=== PATIENT | female | born 1985 | race Caucasian/White ===

== ENCOUNTER 2020-02-21 19:53 | Emergency (ER) | payer SELFPAY ==
[~2020-02-21] VITALS: Ht 170.2 cm; Wt 64.8 kg
[2020-02-21 19:53] VITALS: BP 132/92
--- NOTE | 2020-02-21 20:25 | PHYS DOC ---
Past History Past Medical History: Anemia, Liver Disease Past Medical History alcoholism Past Surgical History: No Surgical History Smoking: Non-smoker, Quit Less Than 1 Year Alcohol Use: Sober (Stopped alcohol use several weeks ago) Drug Use: None General Adult EDM: Chief Complaint: ANXIETY/PANIC ATTACK HPI: HPI: Patient is a 34 year old female who presents for evaluation of insomnia and persistent skin itching. 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 She has a chronically elevated bilirubin level and is clearly jaundiced. Patient was just discharged from [facility]. She is concerned because the itching makes it difficult to sleep. Patient received a blood transfusion about 1 week ago. Patient denies any recent alcohol use for more than several weeks. Patient does take daily steroids, diuretics and thiamine. Patient has some generalized malaise but is ambulatory. Patient currently lives with a friend and a family. She states that she is very anxious and does not want to be alone. Patient states she has been taking Vistaril and Benadryl with minimal improvement of symptoms Review of Systems: Review of Systems: Constitutional: Denies fever or chills Eyes: Denies change in visual acuity HENT: Denies nasal congestion or sore throat Respiratory: Denies cough or shortness of breath Cardiovascular: Denies chest pain or edema GI: Denies abdominal pain, nausea, vomiting, bloody stools or diarrhea : Denies dysuria Musculoskeletal: Denies back pain or joint pain Integument: Jaundiced skin, diffuse pruritus Neurologic: Denies headache, focal weakness or sensory changes Endocrine: Denies polyuria or polydipsia Lymphatic: Denies swollen glands Psychiatric: Denies depression, has anxiety Heart Score: HEART Score for Chest Pain: HEART Score for Chest Pain Response (Comments) Value History Slighlty/Non-Suspicious 0 ECG Normal 0 Age < 45 0 Risk Factors No Risk Factors 0 Troponin < Normal Limit 0 Total 0 Risk Factors: Risk Factors: DM, Current or recent (<one month) smoker, HTN, HLP, family history of CAD, obesity. Risk Scores: Score 0 - 3: 2.5% MACE over next 6 weeks - Discharge Home Score 4 - 6: 20.3% MACE over next 6 weeks - Admit for Clinical Observation Score 7 - 10: 72.7% MACE over next 6 weeks - Early Invasive Strategies Physical Exam: PE: Constitutional: Well developed, well nourished, mild acute distress, non-toxic appearance. [] HENT: Normocephalic, atraumatic, bilateral external ears normal, oropharynx moist, no oral exudates, nose normal. [] Eyes: PERRL, EOMI, scleral icterus, no discharge. [] Neck: Normal range of motion, no tenderness, supple, no stridor. [] Cardiovascular:Heart rate regular rhythm, no murmur [] Lungs & Thorax: Bilateral breath sounds clear to auscultation [] Abdomen: Bowel sounds normal, soft, no tenderness, no masses, no pulsatile masses. [] Skin: Warm, dry, no erythema, diffuse jaundice and scleral icterus. [] Back: No tenderness, no CVA tenderness. [] Extremities: No tenderness, no cyanosis, no clubbing, ROM intact, no edema. [] Neurologic: Alert and oriented X 3, normal motor function, normal sensory function, no focal deficits noted. [] Psychologic: Affect normal, judgement normal, anxious mood. [] Current Patient Data: Labs: Laboratory Tests Test 02/21/20 20:18 White Blood Count 10.1 x10^3/uL Red Blood Count 2.51 x10^6/uL Hemoglobin 9.6 g/dL Hematocrit 27.8 % Mean Corpuscular Volume 111 fL Mean Corpuscular Hemoglobin 38 pg Mean Corpuscular Hemoglobin Concent 35 g/dL Red Cell Distribution Width 25.5 % Platelet Count 400 x10^3/uL Segmented Neutrophils % 59 % Band Neutrophils % 4 % Lymphocytes % 16 % Monocytes % 18 % Metamyelocytes % 2 % Myelocytes % 1 % Toxic Vacuolation Present Platelet Estimate Increased Large Platelets Few Giant Platelets Occ Polychromasia Mod Poikilocytosis Slight Basophilic Stippling Present Anisocytosis Mod Macrocytosis Mod Pappenheimer Bodies Present Target Cells Present Sodium Level 130 mmol/L Potassium Level 2.9 mmol/L Chloride Level 92 mmol/L Carbon Dioxide Level 27 mmol/L Anion Gap 11 Blood Urea Nitrogen 11 mg/dL Creatinine 1.2 mg/dL Estimated GFR (Cockcroft-Gault) 50.8 BUN/Creatinine Ratio 9 Glucose Level 104 mg/dL Calcium Level 9.2 mg/dL Total Bilirubin 19.3 mg/dL Aspartate Amino Transf (AST/SGOT) Pending Alanine Aminotransferase (ALT/SGPT) Pending Alkaline Phosphatase 639 U/L Ammonia 24 mcmol/L Total Protein 6.0 g/dL Albumin 2.4 g/dL Albumin/Globulin Ratio 0.7 Lipase 766 U/L Current Medications Medications (Trade) Dose Ordered Sig/Giovanny Route PRN Reason Start Time Stop Time Status Last Admin Dose Admin Lorazepam (Ativan) 1 mg 1X ONCE PO 02/21/20 20:30 02/21/20 20:33 DC 02/21/20 20:35 Potassium Chloride (Klor-Con) 40 meq 1X ONCE PO 02/21/20 21:15 02/21/20 21:35 DC 02/21/20 21:13 EKG: EKG: [] Radiology/Procedures: Radiology/Procedures: [] Course & Med Decision Making: Course & Med Decision Making Pertinent Labs and Imaging studies reviewed. (See chart for details) 2126 stable, patient has been reassessed multiple times. Her main complaint right now is itching and anxiety. Though symptoms are somewhat improving at this time after Ativan dose. Abdomen is soft and nontender. There is no significant distention present. Awaiting rest of blood work results. Due to her elevated bilirubin levels they have to dilute continue rest results. Patient's low potassium level was already dressed with oral potassium replacement. Patient is already on steroids, Vistaril and Benadryl for itching Dragon Disclaimer: Dragon Disclaimer: This electronic medical record was generated, in whole or in part, using a voice recognition dictation system. Departure Departure: Impression: Primary Impression: Jaundice Additional Impressions: Itching Liver disease due to alcohol Hypokalemia Insomnia Qualified Codes: G47.00 - Insomnia, unspecified Anemia Disposition: HOME/RESIDENCE PRIOR TO ADM Condition: STABLE Referrals: PCP,NO (PCP) CEDRIC RICHARDS MD Patient Instructions: Alcoholic Liver Disease, [id number], Hypokalemia-Brief, Insomnia-Brief, Itching-Brief, Jaundice Additional Instructions: Drink plenty fluids, rest, you have abnormal liver enzymes but have a known history of chronic liver disease. Call and see your liver specialist right away and follow-up. Your ammonia level is stable. Scripts Potassium Chloride (POTASSIUM CHLORIDE ) 20 Meq Tablet.er 20 MEQ PO DAILY for SUPPLEMENT for 7 Days, #7 TAB Prov: WAN INGRAM DO 02/21/20 Lorazepam (ATIVAN) 1 Mg Tablet 1 TAB PO BID for anxiety MDD 2 Tablet(s) for 10 Days, #12 TAB 0 Refills Prov: WAN INGRAM DO 02/21/20 Justification of Admission: Justification of Admission: Justification of Admission Dx: N/A WAN INGRAM DO Feb 21, 2020 20:24
[2020-02-21] MEDS ORDERED: LORazepam 1 MG TABLET PO ONE (20:30)
[2020-02-21 20:38] LABS: HEMATOCRIT 27.8 % (36.0-47.0); HEMOGLOBIN 9.6 g/dL (12.0-15.5); MEAN CORPUSCULAR HEMOGLOBIN 38 pg (25-35); MEAN CORPUSCULAR HGB CONC 35 g/dL (31-37); MEAN CORPUSCULAR VOLUME 111 fL (79-100); PLATELET COUNT 400 x10^3/uL (140-400); RED BLOOD COUNT 2.51 x10^6/uL (3.50-5.40); RED CELL DISTRIBUTION WIDTH 25.5 % (11.5-14.5); WHITE BLOOD COUNT 10.1 x10^3/uL (4.0-11.0)
[2020-02-21 21:05] LABS: ALBUMIN 2.4 g/dL (3.4-5.0)
[2020-02-21 21:06] LABS: CALCIUM 9.2 mg/dL (8.5-10.1); TOTAL BILIRUBIN 19.3 mg/dL (0.2-1.0)
[2020-02-21 21:08] LABS: POTASSIUM 2.9 mmol/L (3.5-5.1)
[2020-02-21] MEDS ORDERED: POTASSIUM CHLORIDE 20 MEQ TABLET.ER. PO ONE (21:15)
[2020-02-21 21:26] LABS: % BANDS 4 % (0-9); % LYMPHS 16 % (24-48); % METAS 2 % (0-0); % MONOS 18 % (0-10); % MYELOS 1 % (0-0); % SEGS 59 % (35-66); PLT ESTIMATE INCREASED (ADEQUATE); POLYCHROMASIA MOD
[2020-02-21 21:27] LABS: ANISOCYTOSIS MOD; PAPPENHEIMER BODIES PRESENT; POIKILOCYTOSIS SLIGHT
[2020-02-21 21:29] LABS: TARGET CELLS PRESENT; TOXIC VACUOLATION PRESENT
[2020-02-21 21:33] LABS: ALBUMIN/GLOBULIN RATIO 0.7 (1.0-1.7)
[2020-02-21 21:34] LABS: CREATININE 1.2 mg/dL (0.6-1.0); GFR 50.8
[2020-02-21] MEDS ORDERED: LORA-254 PO (21:44)
[2020-02-21] MEDS ORDERED: POTA20TA4 PO (21:44)
== END 2020-02-21 21:55 | disposition home or self-care (01) ==
LOC: ER 19:53
DX: G47.00 Insomnia, unspecified (principal); R17 Unspecified jaundice; K70.9 Alcoholic liver disease, unspecified; E87.6 Hypokalemia; D64.9 Anemia, unspecified; L29.9 Pruritus, unspecified; Z86.2 Personal history of diseases of the blood and blood-forming organs and certain disorders involving the immune mechanism; Z87.891 Personal history of nicotine dependence
CPT/HCPCS: 36415; 80053; 82140; 83690; 85007; 85025; 99283

== ENCOUNTER 2020-02-28 01:41 | Emergency (ER) | payer SELFPAY ==
[~2020-02-28] VITALS: Ht 170.2 cm; Wt 64.8 kg
[~2020-02-28 01:41] MED LIST: LORA-254 PO; POTA20TA4 PO
--- NOTE | 2020-02-28 01:44 | PHYS DOC ---
Past History Past Medical History: Anemia, Anxiety, Liver Disease, Other Additional Past Medical Histor: psoriasis, PTSD, ETOH abuse Past Medical History hypokalemia Additional Past Surgical Histo: breast implants, D&N Smoking: Non-smoker, Quit Less Than 1 Year Alcohol Use: Sober Drug Use: None General Adult HPI: HPI: ".. I think I got liver failure.. it never really got bad..until I moved out here from [facility].... I was told a couple years ago that drinking heavily...could cause me to get liver failure.. . But I did not get really yellow until about February 12.... I have been to [facility].... I got a transfusion there..... I have been [facility]... I was here on 02/20.. My main problem at night is the severe itching... I cannot sleep... I do have appointment with Brayan Rivera NP for evaluation.. or referral for maybe getting on list for liver transplant and or consult with GI somewhere..Everyone tell s me I need to go to [facility].. ... It just the itching.. it driving me crazy... I am on run of steriods... 5 mg a day.. and I ve been taking Vistaril... That usually used to work...".." I just feel like crap..." " I fell the other day.. on my right side.. and I ve been hurting ever since..." Patient is a 34 year old female who presents with above hx and complaints itching, possible liver failure second to alcohol abuse, and insomnia. Patient has history of chronically elevated bilirubin and anemia. Reportedly had a transfusion approximately 14 days ago because of anemia. Patient advises she has not used alcohol since her [birth year]. Patient denies other illicit drug use. Denies tylenol use. Has use some Ibuprofen for discomfort and itching. Patient states she just recently stopped smoking. She does have a past history of anxiety, PTSD, depression and panic attacks. Patient currently on a course of prednisone 5 mg a day, diuretics, thiamine, folate,. Patient also taking Vistaril, and Benadry as needed for itching. Pt. denies any herbal med. usage. Has used CBD on occasion but not daily. Review of Systems: Review of Systems: Constitutional: Denies fever or chills Eyes: Denies change in visual acuity HENT: Denies nasal congestion or sore throat Respiratory: Denies cough or shortness of breath Cardiovascular: Denies chest pain or edema GI: Denies abdominal pain, nausea, vomiting, bloody stools or diarrhea : Denies dysuria Musculoskeletal: Denies back pain or joint pain Integument: Denies rash Neurologic: Denies headache, focal weakness or sensory changes Endocrine: Denies polyuria or polydipsia Lymphatic: Denies swollen glands Psychiatric: Denies depression or anxiety Heart Score: Risk Factors: Risk Factors: DM, Current or recent (<one month) smoker, HTN, HLP, family history of CAD, obesity. Risk Scores: Score 0 - 3: 2.5% MACE over next 6 weeks - Discharge Home Score 4 - 6: 20.3% MACE over next 6 weeks - Admit for Clinical Observation Score 7 - 10: 72.7% MACE over next 6 weeks - Early Invasive Strategies Family History: Family History: Noncontributory to presentation Current Medications: Current Meds: See nursing for home medications. Allergies: Allergies: Allergies Coded Allergies Type Severity Reaction Last Updated Verified No Known Allergies Allergy Unknown 02/21/20 Yes Physical Exam: PE: Constitutional: In acute emotional distress, non-toxic appearance. Obviously jaundice and agitated from the itching. HENT: Normocephalic, atraumatic, bilateral external ears normal, oropharynx moist, no oral exudates, nose normal. [] Eyes: PERRLA, EOMI, conjunctiva pale, jaundice, no discharge. [] Neck: Normal range of motion, no tenderness, supple, no stridor. [] Cardiovascular:Heart rate regular rhythm, no murmur [] Lungs & Thorax: Bilateral breath sounds equal apex with scattered wheezes on auscultation []Breast implant scars., Rt. lower chest wall tenderness. Ecchymosis Abdomen: Bowel sounds normal, soft, moderate right upper quadrant tenderness, no masses, no pulsatile masses. [] Skin: Warm, dry, no erythema, no rash. Tattoos. Very jaundice. Resolving hematoma right lower leg. Poor turgor. Multiple areas of contusions, ecchymosis, and areas of petechiae. Loss of lst toe toenails. Back: No tenderness, no CVA tenderness. [] Extremities: Right lower leg tenderness, no cyanosis, no clubbing, ROM intact, right lower leg edema. [Wide gait. Using cane. Neurologic: Alert and oriented X 3, Moves ext on request,, has distal sensory function, no focal deficits noted. [] Patient ambulatory guarded gait due to right leg injury. ( Pt states the hematoma much better than last week). Does have some findings of plantar neuropathy slight decrease Vib.[id number]. Psychologic: Affect anxious,, judgement normal, mood depressed. EKG: EKG: My interpretation EKG shows a sinus rhythm at 68 bpm. Low voltage throughout. Does have mild leftward axis. No findings of acute STEMI with contralateral changes. T waves are flat .[] Radiology/Procedures: Radiology/Procedures: [address] [address] IMAGING REPORT Signed PATIENT: JORGE A SHIN ACCOUNT: [id number] : 1985 LOCATION: ER AGE: 34 SEX: F EXAM STATUS: DEP ER ORD. PHYSICIAN: NUNO THOMAS MD REASON: fall, pain Rt. upper & lower chest, [id number], 90ml & [id number], 30ml PROCEDURE: CT ANGIO CHEST ABD PELVIS EXAM: CTA OF THE CHEST, ABDOMEN AND PELVIS WITH CONTRAST. HISTORY: Fall, chest and abdominal pain. TECHNIQUE: Computed tomography of the chest, abdomen and pelvis was performed after the intravenous administration of iodinated contrast. One or more of the following individualized dose reduction techniques were utilized for this examination: 1. Automated exposure control. 2. Adjustment of the mA and/or kV according to patient size. 3. Use of iterative reconstruction technique. COMPARISON: None. FINDINGS: Bone windows reveal no suspicious lesions. There is no evidence of aortic injury or aneurysm. There is no arch vessel injury or stenosis. The main pulmonary artery is not ideally opacified, but there is no evidence of pulmonary embolism. The celiac axis, superior mesenteric artery and inferior mesenteric artery are patent. The renal arteries are patent bilaterally. The iliac systems are patent without stenosis bilaterally. There are no pathologically enlarged mediastinal or axillary lymph nodes. There is no pleural or pericardial effusion. The heart is not enlarged. Bilateral breast implants are noted. Lung windows reveal no infiltrates. There is mild dependent atelectasis. Hypoattenuation of the hepatic parenchyma at is consistent with severe diffuse hepatic steatosis. The gallbladder is decompressed but demonstrates some wall thickening. The spleen, adrenal glands, kidneys and pancreas are unremarkable. There are no pathologically enlarged lymph nodes. The appendix is not inflamed. There is no small bowel obstruction. IMPRESSION: 1. No evidence of visceral injury within the chest, abdomen or pelvis. 2. Severe diffuse hepatic steatosis. 3. Gallbladder wall thickening most likely reflects liver disease rather than acute cholecystitis. The gallbladder is decompressed. Electronically signed by: Tracy Loya MD (02/28/2020 6:10 AM) [facility] DICTATED AND SIGNED BY: TEJA LOYA MD DATE: 02/28/20609 CC: NUNO THOMAS MD; PCP,NO ~ [][address] [address] IMAGING REPORT Signed PATIENT: JORGE A SHIN ACCOUNT: [id number] : 1985 LOCATION: ER AGE: 34 SEX: F EXAM STATUS: REG ER ORD. PHYSICIAN: NUNO THOMAS MD REASON: pain, hx fall PROCEDURE: TIBIA FIBULA RIGHT EXAM: RIGHT TIBIA/FIBULA 2 VIEWS. HISTORY: Fall, pain. COMPARISON: None. FINDINGS: There is focal soft tissue swelling along the lateral aspect of the right kramer. No fractures are identified. The joint spaces and alignment of the knee and ankle are grossly maintained. IMPRESSION: 1. Focal kramer swelling. No fracture. Electronically signed by: Tracy Loya MD (02/28/2020 5:10 AM) [facility] DICTATED AND SIGNED BY: TEJA LOYA MD DATE: 02/28/2080 CC: NUNO THOMAS MD; PCP,NO ~ [address] [address] IMAGING REPORT Signed PATIENT: JORGE A SHIN ACCOUNT: [id number] : 1985 LOCATION: ER AGE: 34 SEX: F EXAM STATUS: REG ER ORD. PHYSICIAN: NUNO THOMAS MD REASON: pain, hx fall PROCEDURE: CHEST PA & LATERAL EXAM: 1. CHEST 2 VIEWS. 2. ABDOMEN 2 VIEWS. HISTORY: Chest and abdominal pain, fall. COMPARISON: None. FINDINGS: There are no confluent infiltrates. There is no pneumothorax or pleural effusion. The heart is not enlarged. Bilateral breast implants are noted. There is no pneumoperitoneum. There are no distended small bowel loops or significant air-fluid levels. Stool throughout the colon is consistent with constipation. IMPRESSION: 1. No confluent infiltrates. 2. No evidence of obstruction. Correlate for constipation. Electronically signed by: Tracy Loya MD (02/28/2020 5:09 AM) [facility] DICTATED AND SIGNED BY: TEJA LOYA MD DATE: 02/28/20 0509 CC: NUNO THOMAS MD; PCP,NO ~ Course & Med Decision Making: Course & Med Decision Making Pertinent Labs and Imaging studies reviewed. (See chart for details) Discussed presentation, testing and tx. plan with Impression: 1. Hepatic Failure/ Insuf. 2. Leukocytosis 15.2 3. Anemia Hgb 8.7, Macrocytic 116 116/ Hypochromic 38 MCH 4. Elevated LFT/s AST 166, ALT 191, Alk Phos. 397, Tbil 9.0, D 8.1 5. Elevated Lipase 641 [] Dragon Disclaimer: Dragon Disclaimer: This electronic medical record was generated, in whole or in part, using a voice recognition dictation system. Departure Departure: Disposition: HOME/RESIDENCE PRIOR TO ADM Condition: STABLE Referrals: PCP,NO (PCP) Justification of Admission: Justification of Admission: Justification of Admission Dx: N/A Dragon Disclaimer This chart was dictated in whole or in part using Voice Recognition software in a busy, high-work load, and often noisy Emergency Department environment. It may contain unintended and wholly unrecognized errors or omissions. NUNO THOMAS MD Feb 28, 2020 01:44
[2020-02-28] MEDS ORDERED: IV RINGERS SOLUTION,LACTATED 1,000 ML IV SCH (02:00)
--- NOTE | 2020-02-28 02:12 | EKG ---
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
[2020-02-28] MEDS ORDERED: ONDANSETRON PF 4 MG/2 ML VIAL. IVP ONE (02:30)
[2020-02-28] MEDS ORDERED: FAMOTIDINE 20 MG/2 ML VIAL IVP ONE (02:30)
[2020-02-28] MEDS ORDERED: LORazepam 1 MG TABLET PO ONE ×2 (02:30→05:45)
[2020-02-28 02:31] LABS: BASO % 0 % (0-3); EOS # 0.1 x10^3/uL (0.0-0.7); EOS % 1 % (0-3); HEMATOCRIT 26.3 % (36.0-47.0); HEMOGLOBIN 8.7 g/dL (12.0-15.5); LYMPH # 0.5 x10^3/uL (1.0-4.8); LYMPH % 3 % (24-48); MEAN CORPUSCULAR HEMOGLOBIN 38 pg (25-35); MEAN CORPUSCULAR HGB CONC 33 g/dL (31-37); MEAN CORPUSCULAR VOLUME 116 fL (79-100); MONO # 3.5 x10^3/uL (0.0-1.1); MONO % 23 % (0-9); NEUT # 11.1 x10^3uL (1.8-7.7); NEUT % 73 % (31-73); PLATELET COUNT 345 x10^3/uL (140-400); RED BLOOD COUNT 2.27 x10^6/uL (3.50-5.40); WHITE BLOOD COUNT 15.2 x10^3/uL (4.0-11.0)
[2020-02-28 03:00] LABS: BILIRUBIN,URINE SMALL (NEG); CLARITY,URINE CLEAR; COLOR,URINE YELLOW; GLUCOSE,URINE NEG (NEG)
[2020-02-28 03:01] LABS: BACTERIA,URINE 0 /HPF (0-FEW); NITRITE,URINE NEG (NEG); RBC,URINE 0 /HPF (0-2); SQUAMOUS EPITHELIAL CELL,UR OCC /LPF; WBC,URINE OCC /HPF (0-4)
[2020-02-28 03:03] LABS: BARBITURATES NEG (NEG); BENZODIAZEPINES POS (NEG); CANNABINOIDS NEG (NEG); COCAINE NEG (NEG); METHADONE NEG (NEG); OPIATES NEG (NEG); PHENCYCLIDINE NEG (NEG)
[2020-02-28 03:04] LABS: ANION GAP 11 (6-14); BLOOD UREA NITROGEN 21 mg/dL (7-20); CARBON DIOXIDE 27 mmol/L (21-32); CHLORIDE 94 mmol/L (98-107); CREATININE 0.9 mg/dL (0.6-1.0); GFR 70.8; GLUCOSE 158 mg/dL (70-99); POTASSIUM 4.5 mmol/L (3.5-5.1); SODIUM 132 mmol/L (136-145)
[2020-02-28 03:08] LABS: % BANDS 7 % (0-9); % LYMPHS 11 % (24-48); % MONOS 1 % (0-10); % SEGS 81 % (35-66); PLT ESTIMATE ADEQUATE (ADEQUATE)
[2020-02-28 03:09] LABS: ALK PHOS 397 U/L (46-116); ALT (SGPT) 191 U/L (14-59); ANISOCYTOSIS SLIGHT; AST (SGOT) 166 U/L (15-37); DIRECT BILIRUBIN 8.1 mg/dL (0.0-0.2); LIPASE 641 U/L (73-393); TOTAL PROTEIN 6.8 g/dL (6.4-8.2)
[2020-02-28 03:15] LABS: AMPHETAMINE/METHAMPHETAMINE NEG (NEG)
[2020-02-28] MEDS ORDERED: methylPREDNISolone SOD SUCC PF 125 MG/2 ML VIAL. IV ONE (03:15)
[2020-02-28] MEDS ORDERED: AMPICILLIN/SULBACTAM 1.5 GM in IV NORMAL SALINE 50ML 50 ML IV ONE (03:15)
[2020-02-28 03:19] LABS: C REACTIVE PROTEIN < 0.5 mg/L (0-3.3)
[2020-02-28] MEDS ORDERED: AMPICILLIN/SULBACTAM 1.5 GM VIAL. IV ONE (03:19)
[2020-02-28] MEDS ORDERED: IV NORMAL SALINE 50ML 50 ML ONE (03:19)
[2020-02-28 03:20] LABS: ACETAMIN < 2.0 mcg/mL (10-30); SALIC < 2.8 mg/dL (2.8-20.0)
[2020-02-28] MEDS ORDERED: IOHEXOL 240 MG/ML 50ML VIAL. PO ONE (03:45)
[2020-02-28] MEDS ORDERED: CONTRAST GIVEN MC PRN (03:45)
[2020-02-28] MEDS ORDERED: IOHEXOL 350 MG/ML 100 ML VIAL. IV ONE (03:45)
--- NOTE | 2020-02-28 05:12 | RAD ---
EXAM: RIGHT TIBIA/FIBULA 2 VIEWS. HISTORY: Fall, pain. COMPARISON: None. FINDINGS: There is focal soft tissue swelling along the lateral aspect of the right kramer. No fractures are identified. The joint spaces and alignment of the knee and ankle are grossly maintained. IMPRESSION: 1. Focal kramer swelling. No fracture. Electronically signed by: Tracy Loya MD (02/28/2020 5:10 AM) [facility]
--- NOTE | 2020-02-28 05:12 | RAD ---
EXAM: 1. CHEST 2 VIEWS. 2. ABDOMEN 2 VIEWS. HISTORY: Chest and abdominal pain, fall. COMPARISON: None. FINDINGS: There are no confluent infiltrates. There is no pneumothorax or pleural effusion. The heart is not enlarged. Bilateral breast implants are noted. There is no pneumoperitoneum. There are no distended small bowel loops or significant air-fluid levels. Stool throughout the colon is consistent with constipation. IMPRESSION: 1. No confluent infiltrates. 2. No evidence of obstruction. Correlate for constipation. Electronically signed by: Tracy Loya MD (02/28/2020 5:09 AM) [facility]
[2020-02-28 05:30] VITALS: BP 162/96
--- NOTE | 2020-02-28 06:13 | RAD ---
EXAM: CTA OF THE CHEST, ABDOMEN AND PELVIS WITH CONTRAST. HISTORY: Fall, chest and abdominal pain. TECHNIQUE: Computed tomography of the chest, abdomen and pelvis was performed after the intravenous administration of iodinated contrast. One or more of the following individualized dose reduction techniques were utilized for this examination: 1. Automated exposure control. 2. Adjustment of the mA and/or kV according to patient size. 3. Use of iterative reconstruction technique. COMPARISON: None. FINDINGS: Bone windows reveal no suspicious lesions. There is no evidence of aortic injury or aneurysm. There is no arch vessel injury or stenosis. The main pulmonary artery is not ideally opacified, but there is no evidence of pulmonary embolism. The celiac axis, superior mesenteric artery and inferior mesenteric artery are patent. The renal arteries are patent bilaterally. The iliac systems are patent without stenosis bilaterally. There are no pathologically enlarged mediastinal or axillary lymph nodes. There is no pleural or pericardial effusion. The heart is not enlarged. Bilateral breast implants are noted. Lung windows reveal no infiltrates. There is mild dependent atelectasis. Hypoattenuation of the hepatic parenchyma at is consistent with severe diffuse hepatic steatosis. The gallbladder is decompressed but demonstrates some wall thickening. The spleen, adrenal glands, kidneys and pancreas are unremarkable. There are no pathologically enlarged lymph nodes. The appendix is not inflamed. There is no small bowel obstruction. IMPRESSION: 1. No evidence of visceral injury within the chest, abdomen or pelvis. 2. Severe diffuse hepatic steatosis. 3. Gallbladder wall thickening most likely reflects liver disease rather than acute cholecystitis. The gallbladder is decompressed. Electronically signed by: rTacy Loya MD (02/28/2020 6:10 AM) [facility]
[2020-02-28] MEDS ORDERED: DOXEPIN HCL 25 MG CAPSULE PO SCH (21:00)
== END 2020-02-28 05:41 | disposition short-term general hospital (02) ==
LOC: ER 01:41
DX: S20.211A Contusion of right front wall of thorax, initial encounter (principal); K72.90 Hepatic failure, unspecified without coma; D72.829 Elevated white blood cell count, unspecified; D64.9 Anemia, unspecified; R79.89 Other specified abnormal findings of blood chemistry; R74.8 Abnormal levels of other serum enzymes; F43.10 Post-traumatic stress disorder, unspecified; Z86.2 Personal history of diseases of the blood and blood-forming organs and certain disorders involving the immune mechanism; Z87.891 Personal history of nicotine dependence; W18.39XA Other fall on same level, initial encounter; Y93.89 Activity, other specified; Y92.89 Other specified places as the place of occurrence of the external cause; Y99.8 Other external cause status
CPT/HCPCS: 36415; 71046; 71275; 73590; 74019; 74174; 80048; 80076; 80307; 80329; 81001; 82140; 82550; 83605; 83690; 84484; 84702; 85007; 85025; 85045; 85610; 85730; 86140; 86705; 86709; 86803; 86850; 86900; 86901; 87040; 87340; 93005; 96361; 96365; 96367; 96375; 99285; G0480; J0295; J2405; J2930; J3490; J7120; Q9966; Q9967